=== PATIENT | female | born 1960 | race African-American/Black ===

== ENCOUNTER 2019-04-19 03:43 | Emergency (ER) | payer SELFPAY ==
[~2019-04-19] VITALS: Ht 162.6 cm; Wt 90.7 kg
[2019-04-19 04:00] VITALS: BP 147/102
--- NOTE | 2019-04-19 04:33 | PHYS DOC ---
Past Medical History Past Medical History: No Pertinent History Past Surgical History: Alcohol Use: Occasionally Drug Use: None Adult General Chief Complaint Chief Complaint: HIP PAIN HPI HPI Patient is a 58 AA year old female who presents with bilateral hip pain. Patient states hips been bothering her for greater than 6 months. Denies trauma or strain injury. Pain is worse with movement Patient is tried various [id number] medications without relief. She has not been evaluated for this condition by PCP but wanted to get her hips checked out this morning. Review of Systems Review of Systems Review of symptoms as per history of present illness. All other systems were reviewed and found to be within normal limits, except as documented in this note. Physical Exam Physical Exam Constitutional: Well developed, well nourished, no acute distress, non-toxic appearance. [] HENT: Normocephalic, atraumatic, bilateral external ears normal, nose normal. [] Eyes: PERRLA, EOMI, conjunctiva normal. [] Neck: Normal range of motion. [] Extremities: No formation or swelling,. [] Neurologic: Alert and oriented X 3, normal motor function. [] Psychologic: Affect normal, judgement normal, mood normal. [] Current Patient Data Vital Signs Vital Signs Date Time Temp Pulse Resp B/P (MAP) Pulse Ox O2 Delivery O2 Flow Rate FiO2 04/19/19 04:00 98.6 100 16 147/102 (117) 97 Room Air 98.6 EKG EKG [] Radiology/Procedures Radiology/Procedures [] Course & Med Decision Making Course & Med Decision Making Pertinent Labs and Imaging studies reviewed. (See chart for details) Chronic hip pain without acute symptoms or complaints asymptomatic hypertension. Recommendations are for PCP evaluation.] Dragon Disclaimer Dragon Disclaimer This electronic medical record was generated, in whole or in part, using a voice recognition dictation system. Departure Departure Impression: Primary Impression: Chronic pain of both hips Disposition: 01 HOME, SELF-CARE Condition: STABLE Referrals: NO PCP (PCP) Patient Instructions: Chronic Pain Additional Instructions: Follow up with your PCP for evaluation of chronic hip pain. OJSE MOISE DO Apr 19, 2019 04:33
== END 2019-04-19 04:15 | disposition home or self-care (01) ==
LOC: ER 03:43
DX: G89.29 Other chronic pain (principal); M25.552 Pain in left hip; M25.551 Pain in right hip; Z98.890 Other specified postprocedural states
CPT/HCPCS: 99281